=== PATIENT | male | born 1975 | race African-American/Black ===

== ENCOUNTER 2018-04-30 10:41 | Day surgery (SDC) | payer BC ==
[~2018-04-30] VITALS: Ht 167.6 cm; Wt 85.0 kg
--- NOTE | ~2018-04-30 | OP ---
PATIENT NAME: ANTHONY PERRY MEDICAL RECORD: [id number] :77 LOCATION:[facility] ADMISSION DATE: SURGEON: ANNE AVITIA MD DATE OF OPERATION: 04/30/2018 SURGEON: Anne Avitia MD ANESTHESIA: General anesthesia by Anirudh Duarte CRNA. DIAGNOSIS: Right hydrocele. PROCEDURE: Right hydrocelectomy - Jaboulay procedure. SPECIMENS: Right hydrocele sac. ESTIMATED BLOOD LOSS: Minimal. CLINICAL HISTORY: This is a 42-year-old male who has had a right hydrocele for over 10 months. It has been progressively increasing in size. It gives him discomfort at night as well as when he is walking. I saw him initially in August of 2017 for this, but he could never get time off work. It has gotten bigger in size in the meantime. He wishes to have it treated now. He is not allergic to any medications. He was given Ancef lactation nurse to the OR. DESCRIPTION OF PROCEDURE: The patient was given induction of general anesthesia. He was in supine position. He was in supine position. He was prepped and draped. A 3 cm long incision was marked out on the median rhaphe of the scrotum. The line of incision was infiltrated with 1% lidocaine with epinephrine. The incision was made using #10 blade. We continued to go down through the dartos fascia with the blade. Finally, a small stab incision was made into the tunica vaginalis and the Yankauer suction could then be placed into the right hemiscrotum to drain the hydrocele fluid. The incision was lengthened through the tunica vaginalis and the testis was everted out through the hemiscrotum. The excess tunica on either side was excised using the Bovie. The flaps of tunica from each side were then reapproximated posterior to the cord using running 2-0 Vicryl. The testicle was then placed back into its hemiscrotum. The dartos fascia was closed using a running 4-0 Vicryl. The skin was reapproximated using simple interrupted 4-0 Vicryl. Fluffs and mesh panties were then given to the patient. I will see the patient in followup in 1 month's time. TRANSINT:[id number] Voice Confirmation ID: [id number] DOCUMENT ID: [id number] ANEN AVITIA MD at 0841 CC: [id number] DICTATION DATE: 04/30/18 1643 SITE SUPERVISOR: 04/30/18 2313 [facility] 04/30/18 [id number] [place] [address]
[2018-04-30 11:18] VITALS: BP 158/100; Ht 167.6 cm; Wt 85.0 kg
== END 2018-04-30 18:28 | disposition home or self-care (01) ==
LOC: D.OPS 10:41
DX: N43.3 Hydrocele, unspecified (principal); Z01.812 Encounter for preprocedural laboratory examination

== ENCOUNTER 2018-11-26 04:45 | Emergency (ER) | payer BC ==
[~2018-11-26] VITALS: Ht 167.6 cm; Wt 87.3 kg
[2018-11-26 04:49] VITALS: Ht 167.6 cm; Wt 87.3 kg
[2018-11-26] MEDS ORDERED: CARDURA2 MG PO (04:50)
[2018-11-26] MEDS ORDERED: NORVASC5 MG PO (04:51)
[2018-11-26 06:16] LABS: UDS - AMPHET NEGATIVE QUAL (NEGATIVE); UDS - BARB NEGATIVE QUAL (NEGATIVE); UDS - BENZO NEGATIVE QUAL (NEGATIVE); UDS - COCAINE NEGATIVE QUAL (NEGATIVE); UDS - OPIATE NEGATIVE QUAL (NEGATIVE); UDS - PCP NEGATIVE QUAL (NEGATIVE); UDS - THC NEGATIVE QUAL (NEGATIVE)
[2018-11-26 06:26] LABS: APPEARANCE CLEAR (CLEAR); BACTERIA FEW /hpf (NONE SEEN); BILIRUBIN NEGATIVE (NEGATIVE); COLOR YELLOW (YELLOW); EPITHELIAL CELLS 0-5 /hpf (0-5); GLUCOSE NEGATIVE (NEGATIVE); KETONE SMALL mg/dL (NEGATIVE); MUCUS <1+ /lpf (NONE SEEN); NITRITE NEGATIVE (NEGATIVE); PROTEIN NEGATIVE (NEGATIVE); RED CELLS - URINE 0-5 /hpf (0-5); SPECIFIC GRAVITY 1.015 (1.005-1.020); WHITE CELLS - URINE OCC /hpf (0-5)
[2018-11-26] MEDS ORDERED: SKELAXIN800 MG PO (06:30)
[2018-11-26] MEDS ORDERED: NAPROSYN500 MG PO (06:30)
[2018-11-26 06:38] VITALS: BP 137/99
== END 2018-11-26 06:36 | disposition home or self-care (01) ==
LOC: D.ER 04:45
PROVIDERS: Family Medicine
DX: S39.012A Strain of muscle, fascia and tendon of lower back, initial encounter (principal); X58.XXXA Exposure to other specified factors, initial encounter; Y93.9 Activity, unspecified; Y92.019 Unspecified place in single-family (private) house as the place of occurrence of the external cause

== ENCOUNTER 2019-05-27 08:13 | Day surgery (SDC) | payer BC ==
[~2019-05-27] VITALS: Ht 162.6 cm; Wt 87.5 kg
[~2019-05-27 08:13] MED LIST: CARDURA2 MG PO; NAPROSYN500 MG PO; NORVASC5 MG PO; SKELAXIN800 MG PO
[2019-05-27 09:20] LABS: HEMATOCRIT 41.2 % (42.0-54.0); HEMOGLOBIN 14.1 g/dL (13.5-17.5); MCH 30.2 pg (26.0-34.0); MCHC 34.2 g/dL (31.0-37.0); MCV 88.2 fL (80.0-100.0); MEAN PLATELET VOLUME 10.4 fL (7.4-10.4); RBC 4.67 10x6/uL (4.20-6.10); RDW 12.4 % (11.5-14.5); WBC 6.2 10x3/uL (4.8-10.8)
[2019-05-27] MEDS ORDERED: NORVASC5 MG PO (09:41)
[2019-05-27 09:59] VITALS: BP 158/93; Ht 162.6 cm; Wt 87.5 kg
--- NOTE | 2019-05-27 14:36 | NUR ---
1435 VOIDED IN BATHROOM. B/P BETTER.
--- NOTE | 2019-05-28 08:34 | OP ---
PATIENT NAME: ANTHONY PERRY MEDICAL RECORD: [id number] :77 LOCATION:[facility] ADMISSION DATE: SURGEON: ANNE AVITIA MD DATE OF OPERATION: 05/27/2019 SURGEON: Anne Avitia MD ANESTHESIA: General anesthesia by Anitha Cox CRNA DIAGNOSIS: Right hydrocele recurrence. PROCEDURE: Right hydrocelectomy, Jaboulay procedure. FINDINGS: Right hydrocele recurred lateral to the testicle. SPECIMENS: Right hydrocele sac. ESTIMATED BLOOD LOSS: Minimal. CLINICAL HISTORY: This is a 43-year-old male, who had a right hydrocelectomy in April of 2018. In July of 2018, there was a small reoccurrence of the hydrocele. It has since become larger and now it is symptomatic and bothersome to the patient. 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 HE IS ALLERGIC TO REQUIP. He was given Ancef building construction engineer to the OR. DESCRIPTION OF PROCEDURE: The patient was given general anesthesia in supine position. He was then shaved, prepped and draped. The median rhaphe of the scrotum was infiltrated with 1% lidocaine without epinephrine. A 2 cm long incision was made in the median raphae. I then went down to the dartos fascia with a #15 blade. I felt that the incision was primarily coming down directly on to the testicle. However, I could feel the hydrocele lateral to and posterior to the testicle. We therefore shifted our dissection towards the right lateral surface of the testicle. Here, we incised the tunica vaginalis with a 15-blade and opened up the hydrocele. The hydrocele fluid was drained out. The Bovie was used to lengthen the incision in the tunica vaginalis. The testicle was then everted out of the right hemiscrotum through the incision. There was still redundant hydrocele sac, especially on the lateral portion of the high right scrotum. The excess hydrocele sac was excised using the Bovie. The remaining hydrocele sac flaps were then sutured to each other, posterior to the cord. Running 3-0 Vicryl was used for this. The testicle was then placed back into its right hemiscrotum with the lateral sulcus facing laterally. The dartos fascia was reapproximated using running 3-0 Vicryl. Simple interrupted 4-0 Monocryl was used to close the skin incision. Fluffs and mesh panties were given to the patient. I will see the patient in followup in 1 months' time to check wound healing. TRANSINT:[id number] Voice Confirmation ID: [id number] DOCUMENT ID: [id number] OPERATIVE REPORT [id number] ANTHONY PERRY ROBERT S MD at 0834 CC: [id number] DICTATION DATE: 05/27/19 1321 CHECKING DEPARTMENT SUPERVISOR: 05/27/19 1443 [facility] [place] 05/27/[address] [facility] [address] [place] [address]
== END 2019-05-27 15:17 | disposition home or self-care (01) ==
LOC: D.OPS 08:13
PROVIDERS: Anesthesiology; ATTEND Urology
DX: N43.3 Hydrocele, unspecified (principal)